=== PATIENT | male | born 1970 | race Caucasian/White ===

== ENCOUNTER 2018-07-03 20:07 | Emergency (ER) | payer MEDICAID, OTHER ==
--- NOTE | 2018-07-03 20:34 | Emergency Department Record ---
History of Present Illness - General Chief complaint: Rash Stated complaint: HEADACHE,LT LEG WELTS,BODY ACHES Time Seen by Provider: 07/03/18 20:09 Source: Patient Mode of Arrival: Ambulatory Limitations: No limitations - History of Present Illness Initial comments: 48 yo male presents to ED for evaluation of a rash to the left lower extremity that began 5 days ago. Patient denies itching symptoms, reprots bodyaches without fever symptoms. Patient denies fevers or chills, but does report headache and neck pain symptoms. Patient was seen in Urgent Care yesterday, told that his symptoms may be the result of a tick bite, started on Doxycycline for 22 days. Patient does report doing some outdoor work 1 week ago prior to the rash beginning. MD complaint: Rash Onset/Timin -: Days(s) Location: LLE Severity: Moderate Consistency: Constant Improves with: None Worsens with: None Associated symptoms: Myalgias Treatments Prior to Arrival: Antibiotic - Related Data Home Medications Medication Instructions Recorded Confirmed Last Taken Amlodipine Besylate [Norvasc] 10 mg PO DAILY 07/03/18 07/03/18 Unknown Doxycycline Hyclate 100 mg PO BID 07/03/18 07/03/18 Unknown Lisinopril/Hydrochlorothiazide 1 each PO DAILY 07/03/18 07/03/18 Unknown [Lisinopril-Hctz 10-12.5 mg Tab] Previous Rx's Medication Instructions Recorded Ondansetron [Zofran Odt] 4 mg PO Q8H PRN #15 tab.rapdis 07/03/18 Prednisone [Prednisone 20Mg] 20 mg PO BID #15 tab 07/03/18 Allergies Allergy/AdvReac Type Severity Reaction Status Date / Time Iodinated Contrast- Oral and Allergy ANAPHYLAXIS Verified 07/03/18 20:31 IV Dye Review of Systems Constitutional: Denies: Chills, Fever, Malaise, Night sweats Eyes: Denies: Eye discharge, Eye pain ENT: Denies: Congestion, Ear pain, Epistaxis Respiratory: Denies: Cough, Dyspnea Cardiovascular: Denies: Chest pain, Dyspnea on exertion Endocrine: Denies: Fatigue, Heat or cold intolerance Gastrointestinal: Denies: Abdominal pain, Nausea, Vomiting Genitourinary: Denies: Incontinence, Retention Musculoskeletal: Reports: Myalgia. Denies: Arthralgia, Back pain, Gout, Joint swelling Skin: Denies: Bruising, Change in color Neurological: Reports: Headache. Denies: Abnormal gait, Confusion, Seizure Psychiatric: Denies: Anxiety Hematological/Lymphatic: Denies: Anemia, Blood Clots Physical Exam - General General Appearance: Alert, Oriented x3, Cooperative, Mild distress Limitations: No limitations - Head Head exam: Atraumatic, Normocephalic, Normal inspection Head exam detail: negative: Abrasion, Contusion, Rutherford's sign, General tenderness, Hematoma, Laceration - Eye Eye exam: Normal appearance. negative: Conjunctival injection, Periorbital swelling, Periorbital tenderness, Scleral icterus - ENT Ear exam: negative: Auricular hematoma, Auricular trauma Nasal Exam: negative: Active bleeding, Discharge, Dried blood, Foreign body Mouth exam: negative: Drooling, Laceration, Muffled voice, Tongue elevation - Neck Neck exam: Normal inspection. negative: Meningismus, Tenderness - Respiratory Respiratory exam: Normal lung sounds bilaterally. negative: Rales, Respiratory distress, Rhonchi, Stridor - Cardiovascular Cardiovascular Exam: Regular rate, Normal rhythm, Normal heart sounds - GI/Abdominal GI/Abdominal exam: Soft. negative: Rebound, Rigid, Tenderness - Rectal Rectal exam: Deferred - exam: Deferred - Extremities Extremities exam: Other (Purpuric appearing vesicles in 3 grouped areas are present to the left anterior/medial lower extremity. Normal symmetric DPP, no warmth to palpation.). negative: Calf tenderness, Pedal edema, Tenderness - Back Back exam: Denies: CVA tenderness (R), CVA tenderness (L) - Neurological Neurological exam: Alert, Normal gait, Oriented X3 - Psychiatric Psychiatric exam: Normal affect, Normal mood - Skin Skin exam: Rash Type of lesion: Rash. negative: abrasion Distribution of rash: LLE Description of rash: Papular, Vesicular Course Vital Signs 07/03/18 20:14 Temperature 98.1 F Pulse Rate [ 83 Pulse Ox Probe] Respiratory 20 Rate Blood Pressure 153/103 [Left Arm] Pulse Ox 96 - Reevaluation(s) Reevaluation #1: 07/03/18 20:39 Patient was seen and examined. Lesions/rash has been present for 5 days. Patient denies itching, reports myalgias without fever. Examination is c/w with mild groupings of vesicles with purpuric base. Symptoms are NOT c/w: fungal, cellulitis, allergic process. Reevaluation #2: 07/03/18 21:01 Laboratory studies were reviewed and appears grossly unremarkable for an acute process. patient was updated on all results. Symptoms are felt to be the result of possible contact dermatitis vs. vasculitis (less likely with normal inflammatory markers). Will treat with Prednisone taper as directed with instructions to return for worsening of symptoms. Will refer to Dr. Durbin as well for dermatologic consultation. Patient is otherwise well appearing and stable for discharge at this time. Medical Decision Making - Lab Data Result diagrams: 07/03/18 20:30 07/03/18 20:30 Disposition Disposition: Discharge Clinical Impression: Vesicular dermatitis Disposition: Home, Self-Care Condition: (2) Stable Instructions: Contact Dermatitis (ED) Additional Instructions: Return to ED if your symptoms worsen or if you have any concerns. Prednisone and Zofran as directed. Follow-up with your family doctor as scheduled next Tuesday. Follow-up with Dr Durbin in 1-3 days as directed. Prescriptions: Ondansetron [Zofran Odt] 4 mg PO Q8H PRN #15 tab.rapdis PRN Reason: Nausea/Vomiting Prednisone [Prednisone 20Mg] 20 mg PO BID #15 tab Referrals: OSCAR DURBIN [CONSULTING PHYSICIAN] - Forms: Patient Portal Access Time of Disposition: 21:34 Quality - Quality Measures Quality Measures: N/A - Blood Pressure Screening Does Patient Have Any of the Following: Active Dx of HTN Blood Pressure Classification: Hypertensive Reading Systolic Measurement: 153 Diastolic Measurement: 103 Screening for High Blood Pressure: Patient Exclusion, Hx of HTN [G9744]
[2018-07-03 20:42] LABS: BASO % 0.5 % (0-6); EOS % 1.5 % (0-6); GRAN % 59.7 % (47-80); HEMATOCRIT 44.9 % (42.0-52.0); HEMOGLOBIN 15.3 gm/dl (14.0-18.0); LYMPH % 28.3 % (16-45); MEAN CELL VOLUME 94.1 fl (81-97); MEAN CORPUSCULAR HEMOGLOBIN 32.1 pg (27-33); MEAN CORPUSCULAR HGB CONC 34.1 g/dl (32-36); MEAN PLATELET VOLUME 9.8 fl (7.4-10.4); PLATELET COUNT 272 K/uL (130-400); RED BLOOD COUNT 4.77 M/uL (4.40-5.70); RED CELL DISTRIBUTION WIDTH 13.7 % (11.5-14.5); WHITE BLOOD COUNT W/O DIFF 7.5 K/uL (4.2-12.2)
[2018-07-03 20:54] LABS: BLOOD UREA NITROGEN 13 mg/dL (6-20); EST GLOMERULAR FILTRATION RATE > 60 mL/min
[2018-07-03 20:55] LABS: TOTAL PROTEIN 7.5 g/dL (6.6-8.7)
[2018-07-03 20:57] LABS: GLUCOSE,RANDOM 120 mg/dL (74-109)
[2018-07-03 20:59] LABS: ALT/SGPT 16 U/L (<41)
[2018-07-03 21:00] LABS: ALB/GLOB RATIO 1.7 (1.1-1.8); ALBUMIN 4.7 g/dL (4.0-5.0); ALKALINE PHOSPHATASE 68 U/L (40-129); AST/SGOT 16 U/L (10.0-50.0)
[2018-07-03 21:17] LABS: ERYTHROCYTE SEDIMENTATION RATE 17 mm/hr (0-20)
[2018-07-03] MEDS ORDERED: PREDNISONE 20 MG TAB PO ONE (21:46)
== END 2018-07-03 21:49 | disposition home or self-care (01) ==
LOC: ER 20:07
DX: B00.1 Herpesviral vesicular dermatitis (principal); I10 Essential (primary) hypertension; F17.210 Nicotine dependence, cigarettes, uncomplicated
CPT/HCPCS: 80053; 85025; 85651; 86140; 99283; J7512

== ENCOUNTER 2019-01-09 11:03 | Emergency (ER) | payer MEDICAID ==
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
== END 2019-01-09 12:39 | disposition home or self-care (01) ==
LOC: ER 11:03
DX: S46.911D Strain of unspecified muscle, fascia and tendon at shoulder and upper arm level, right arm, subsequent encounter (principal); V29.9XXD Motorcycle rider (driver) (passenger) injured in unspecified traffic accident, subsequent encounter; I10 Essential (primary) hypertension; F17.210 Nicotine dependence, cigarettes, uncomplicated
CPT/HCPCS: 99283